=== PATIENT | female | born 1960 | race Caucasian/White ===

== ENCOUNTER 2017-04-13 10:45 | Inpatient (IN) | payer BC ==
[2017-05-01] MEDS ORDERED: TRANEXAMIC ACID 1,000 MG in NS (SYRINGE) 50 ML IV ONE (06:00)
[2017-05-01] MEDS ORDERED: morphINE PF 5 MG/10 ML INJ IT ONE (07:02)
[2017-05-01] MEDS ORDERED: fentaNYL 100 MCG/2 ML INJ IT ONE (07:02)
[2017-05-01] MEDS ORDERED: ceFAZolin 2 GM/SWFI 2 GM/20 ML SYR IVP ONE ×2 (07:02→07:30)
[2017-05-01] MEDS ORDERED: LR 1,000 ML IV ONE (07:06)
[2017-05-01] MEDS ORDERED: LIDOCAINE 1% 2 ML INJ ID PRN (07:06)
--- NOTE | 2017-05-01 07:18 | PDGENHP ---
History & Physical Chief Complaint: neck pain History of Present Illness: previous neck surgeries with non-union, multilevel DJD/stenosis. Patient has neck pain and right arm paresthesias Pertinent Past, Social, Family History: hypothryoidism Relevant Physical Exam: AAOx4, +FC. PERRL, EOMI. 5/5. + light touch
[2017-05-01] MEDS ORDERED: THROMBIN (BOVINE) 20,000 UNIT VIAL TP ONE ×2 (08:20→13:18)
[2017-05-01] MEDS ORDERED: CHLORHEXIDINE GLUC HIBICLENS 118 ML BTL TP ONE (08:20)
[2017-05-01] MEDS ORDERED: BUPIVACAINE 0.25% 30 ML SDV ONE (08:20)
[2017-05-01] MEDS ORDERED: BACITRACIN 50,000 UNITS/10 ML SYR IRR ONE (08:21)
[2017-05-01] MEDS ORDERED: LIDOCAINE 2% 5 ML SDV ONE (09:25)
[2017-05-01] MEDS ORDERED: DEXAMETHASONE 4 MG/ML VIAL ONE (09:25)
[2017-05-01] MEDS ORDERED: ONDANSETRON 4 MG/2 ML VIAL ONE (09:25)
[2017-05-01] MEDS ORDERED: ROCURONIUM 50 MG/5 ML VIAL ONE (09:25)
[2017-05-01] MEDS ORDERED: REMIFENTANIL HCL 1 MG VIAL ONE ×3 (09:29→14:03)
[2017-05-01] MEDS ORDERED: fentaNYL 100 MCG/2 ML INJ ONE ×4 (09:29→17:23)
[2017-05-01] MEDS ORDERED: PROPOFOL/EMULSION 500 MG/50 ML BOTTLE IV ONE ×2 (09:30→12:42)
[2017-05-01] MEDS ORDERED: PROPOFOL 200 MG/20 ML VIAL ONE (09:30)
[2017-05-01] MEDS ORDERED: MIDAZOLAM 2 MG/2 ML VIAL IVP ONE (09:33)
--- NOTE | 2017-05-01 09:47 | PDANEPAE ---
ANE History of Present Illness h/o ACDF with persistent cervicalgia and radiculopathy. p/f hardware removal, ACDF, and posterior cervical fusion. ANE Past Medical History - Cardiovascular History Hx Hypertension: No Hx Arrhythmias: No Hx Chest Pain: No Hx Coronary Artery / Peripheral Vascular Disease: No Hx CHF / Valvular Disease: No Hx Palpitations: No - Pulmonary History Hx COPD: No Hx Asthma/Reactive Airway Disease: No Hx Recent Upper Respiratory Infection: No Hx Oxygen in Use at Home: No Hx Sleep Apnea: No Sleep Apnea Screening Result - Last Documented: Negative - Neurologic History Hx Cerebrovascular Accident: No Hx Seizures: No Hx Dementia: No Neurologic History Comment: 2016 TIA - Endocrine History Hx Diabetes: No Hypothyroid: Yes Hyperthyroid: No Obesity: no - Renal History Hx Renal Disorders: No - Liver History Hx Hepatic Disorders: No - Neurological & Psychiatric Hx Hx Neurological and Psychiatric Disorders: Yes Neurological / Psychiatric History Comment: ANXIETY,DEPRESSION - Cancer History Hx Cancer: Yes Cancer History Comment: BREAST CA - Congenital Disorder History Hx Congenital Disorders: No - GI History GERD: no Hx Gastrointestinal Disorders: No - Other Health History Other Health History: RASH ON FACE - Chronic Pain History Chronic Pain: Yes (LOWER BACK) - Surgical History Prior Surgeries: 2016 lumpectomy ANE Review of Systems Review of systems is: negative Review of Systems: - Exercise capacity METS (RN): 4 METS ANE Patient History - Allergies Allergies/Adverse Reactions: Sulfa (Sulfonamide Antibiotics) Allergy (Verified 03/29/17 11:09) Swelling/neck,face,throat - Home Medications Home medications: home medication list seen and reviewed Home Medications: Aspirin [Aspirin 81mg (*)] 81 mg PO DAILY 03/29/17 [Last Taken 04/06/17] Atorvastatin Calcium [Lipitor 40 mg (*)] 40 mg PO DAILY 03/29/17 [Last Taken ] Citalopram Hydrobromide [Citalopram HBr] 40 mg PO DAILY 03/29/17 [Last Taken 08:00] Cyanocobalamin [Vitamin B12 (*)] 1,000 mcg PO DAILY 03/29/17 [Last Taken ] Cyclobenzaprine [Flexeril 10 MG (*)] 10 mg PO TID PRN 03/29/17 [Last Taken 04/06] Donepezil HCl [Aricept 5 MG (*)] 10 mg PO DAILY 03/29/17 [Last Taken 04/30/17 08 :00] Gabapentin [Neurontin 300 MG (*)] 900 mg PO HS 03/29/17 [Last Taken 04/30/17 21: 45] HYDROmorphone HCL [Dilaudid 2 mg (*)] 2 - 4 mg PO BID PRN 03/29/17 [Last Taken 04/30/17 16:00] Levothyroxine [Synthroid 75 mcg (*)] 75 mcg PO DAILY06 03/29/17 [Last Taken 08:00] buPROPion XL [Wellbutrin Xl] 300 mg PO DAILY 03/29/17 [Last Taken 04/30/17 08:00 ] celeCOXIB [Celebrex (*)] 200 mg PO QID PRN 03/29/17 [Last Taken 04/06/17] - NPO status NPO Since - Liquids (Date): 04/30/17 NPO Since - Liquids (Time): 21:45 NPO Since - Solids (Date): 04/30/17 NPO Since - Solids (Time): 19:30 - Anes Hx Anes Hx: no prior problems - Smoking Hx Smoking Status: Former smoker - Family Anes Hx Family Hx Anesthesia Complications: none ANE Labs/Vital Signs - Vital Signs Blood Pressure: 121/52 Heart Rate: 60 Respiratory Rate: 16 O2 Sat (%): 94 Height: 167.64 cm Weight: 63.503 kg ANE Physical Exam - Airway Neck exam: decreased ROM, spinal fusion Mouth exam: normal dental/mouth exam - Pulmonary Pulmonary: no respiratory distress - Cardiovascular Cardiovascular: regular rate and rhythym - ASA Status ASA Status: II ANE Anesthesia Plan Anesthesia Plan: general endotracheal anesthesia Lines/Monitors: arterial line, additional IV Specialized Airway: video laryngoscope
[2017-05-01] MEDS ORDERED: SUCCINYLCHOLINE CHLORIDE 200 MG/10 ML SYR IVP ONE (10:06)
[2017-05-01] MEDS ORDERED: CITRATE DEXTROSE SOLN 500 ML BAG ONE ×2 (10:30→12:58)
[2017-05-01] MEDS ORDERED: HYDROmorphONE/DILAUDID 2 MG/ML INJ ONE ×2 (10:51→16:11)
[2017-05-01] MEDS ORDERED: THROMBIN (BOVINE) 5,000 UNIT VIAL TP ONE (12:18)
[2017-05-01] MEDS ORDERED: ceFAZolin 1 GM VIAL ONE (13:33)
[2017-05-01] MEDS ORDERED: diphenhydrAMINE 25 MG CAP PO PRN (15:42)
[2017-05-01] MEDS ORDERED: LACTULOSE 20 GM/30 ML UDCUP PO PRN (15:42)
[2017-05-01] MEDS ORDERED: NALOXONE HCL 0.4 MG/ML INJ IVP PRN ×2 (15:42→15:56)
[2017-05-01] MEDS ORDERED: MAGNESIUM HYDROXIDE 30 ML UDCUP PO PRN (15:42)
[2017-05-01] MEDS ORDERED: HYDROmorphONE/DILAUDID 2 MG/ML INJ IVP PRN (15:42)
[2017-05-01] MEDS ORDERED: BISACODYL 10 MG SUPP PR PRN (15:42)
[2017-05-01] MEDS ORDERED: NS W/ 20 KCl/L 1,000 ML IV SCH (15:45)
[2017-05-01] MEDS ORDERED: HYDROmorphONE/DILAUDID 2 MG TAB PO PRN (15:50)
--- NOTE | 2017-05-01 15:53 | SOAPPROG ---
SOAP Progress Note Assessment/Plan: Assessment: 56 yo F sp C3/4, 4/5, C6/7, C7/T1 ACDF and C3-t posterior cervical fusion Plan: stable to step down for overnight obs hard collar to be fit by [facility] PT/OT please call with neuro changes 05/01/17 15:52 Subjective: + neck pain, no arm pain Objective: Vital Signs Temp Pulse Resp BP Pulse Ox 37.2 C 60 16 121/52 H 94 05/01/17 09:51 05/01/17 09:51 05/01/17 09:51 05/01/17 09:51 05/01/17 09:51 awake PERRL, no facial droop RITCHIE x 4 + light touch ICD10 Worksheet Patient Problems: Problems Problem Status Onset Fusion of spine of cervical region Acute - ICD10 Problem Qualifiers (1) Fusion of spine of cervical region
[2017-05-01] MEDS ORDERED: PROMETHAZINE HCL 25 MG/ML INJ IVP PRN (15:56)
[2017-05-01] MEDS ORDERED: OXYCODONE/APAP 5/325 TAB PO PRN (15:56)
[2017-05-01] MEDS ORDERED: ACETAMINOPHEN 500 MG TAB PO PRN (15:56)
[2017-05-01] MEDS ORDERED: LR 500 ML IV PRN (15:56)
[2017-05-01] MEDS ORDERED: HYDROCODONE/APAP 5/325 TAB PO PRN (15:56)
[2017-05-01] MEDS ORDERED: LABETALOL HCL 5 MG/ML 20 ML MDV IVP PRN (15:56)
[2017-05-01] MEDS ORDERED: ALBUTEROL 3 ML DEYVIAL IH PRN (15:56)
[2017-05-01] MEDS ORDERED: ONDANSETRON 4 MG/2 ML VIAL IVP PRN (15:56)
--- NOTE | 2017-05-01 15:57 | POSTANESTH ---
Post Anesthetic Evaluation Cardiovascular Status: Normal, Stable Respiratory Status: Normal, Stable Level of Consciousness/Mental Status: Can Participate in Eval Pain Control: Adequate, Prn Tx Ordered Nausea/Vomiting Control: Adequate, Prn Tx Ordered Complications Possibly Related to Anesthesia: None Noted
[2017-05-01] MEDS: fentaNYL 100 MCG/2 ML INJ IVP PRN ×4 (16:13→17:42)
[2017-05-01] MEDS ORDERED: DIAZEPAM 5 MG/ML 1 ML SYR ONE (16:21)
[2017-05-01] MEDS: DIAZEPAM 5 MG/ML 1 ML SYR IVP PRN ×2 (16:23→16:34)
[2017-05-01] MEDS: HYDROmorphONE/DILAUDID 2 MG/ML INJ IVP PRN ×2 (16:49→17:21)
[2017-05-01] MEDS: HYDROmorphONE/DILAUDID 6 MG/30 ML PCA IV PRN (18:23)
[2017-05-01] MEDS: DIAZEPAM 5 MG TAB PO PRN (18:23)
[2017-05-01] MEDS: METHOCARBAMOL 750 MG TAB PO PRN (19:09)
[2017-05-01] MEDS: POLYETHYLENE GLYCOL 3350 17 GM PKT PO SCH ×2 (19:53→23:27)
--- NOTE | 2017-05-01 20:13 | GOP ---
[f rep st] OPERATIVE REPORT DATE OF OPERATION: SURGEON: Daryn Kincaid MD NEUROSURGEON: Daryn Kincaid MD. DRAPERY MAKER: CAMRYN Hutton ANESTHESIA: General endotracheal. 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 PROCEDURE PERFORMED: C3 through T1 posterior segmental (pedicle screw and lateral mass screw) fixati on and posterolateral fusion with local autograft and bone morphogenic protein. Use of intraoperativ e microscopy and fluoroscopy. FINDINGS: ESTIMATED BLOOD LOSS: 50 cc. 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 The patient presents for removal of the C5 throug h C7 anterior cervical plate and revision of the fusion at C6-7 and new decompression and fusions at C3-4, C4-5, and C7-T1. DESCRIPTION OF PROCEDURE: After the anterior portion of the procedure was completed, the patient was repositioned prone on the Junior table with the head in a radiolucent Johnson inspector and adjuster golf club head. The po sterior cervical and upper thoracic regions were prepped and draped in sterile fashion. After fluoro scopic localization of the correct levels, the subcutaneous and intramuscular tissues were infiltrate d with local anesthesia. A midline linear incision was then created from approximately C3 through T1 and carried down to the fascial layer, which was then incised using monopolar electrocautery and car ried in a subperiosteal plane along the spinous processes and out the lamina bilaterally. Following re-verification of good position, the area was scraped clean of soft tissues and the joints drilled o ut at C3-4, C4-5, C5-6, C6-7, and C7-T1. After defining the anatomy very well, the fluoroscopy unit was removed and the O-arm neuronavigational system brought in. 3D reconstructed images were obtained and sent to the [facility] station. Using computer volumetric stereotactic navigation, pedicle screws were placed at T1 bilaterally and lateral mass screw fixation at C2 through C6 bilaterally. Each ind ividual screw was tested neurophysiologically with monopolar electrostimulation and interpretation of the potentials by the surgeon. Following verification of good position with the intraoperative neur ophysiologic testing and biplanar fluoroscopy, the rods were then contoured and placed and secured un rebeca maximal lordosis. Following this and decortication of the all the remaining lamina and facet radha nts from C3 through T1, the residual local autograft along with bone morphogenic protein and morseliz ed allograft was placed out laterally for a posterolateral fusion from C3 through T1. A drain was th en placed. The subcutaneous and intramuscular tissues were re-infiltrated with local anesthesia and the wound was closed in a layered fashion using interrupted Vicryl sutures followed by Steri-Strips o n the skin. COMPLICATIONS: None. /[id number]/MODL
--- NOTE | 2017-05-01 20:13 | GOP ---
[f rep st] OPERATIVE REPORT DATE OF OPERATION: 05/01/2017 SURGEON: Daryn Kincaid MD NEUROSURGEON: Daryn Kincaid MD. LENS GENERATOR: CAMRYN Hutton ANESTHESIA: General endotracheal. 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 PROCEDURE PERFORMED: Removal of C5 through C7 anterior cervical plate with redo C6-7 anterior cervic al diskectomy and arthrodesis with structural PEEK interbody spacers, local autograft and demineraliz ed bone matrix. New C3-4, C4-5 and C7-T1 anterior cervical diskectomy and arthrodesis with 3 structu ral PEEK interbody spacers, local autograft and demineralized bone matrix. Placement of a C3 through C5 anterior cervical plate with self-drilling screws and a C6 through T1 anterior cervical plate wit h self-drilling screws. Partial C7 vertebral corpectomy for decompression of canal and nerve roots a nd pseudoarthrosis. Use of intraoperative microscopy, fluoroscopy, and computer volumetric stereotac tic navigation with intraoperative neurophysiologic testing. FINDINGS: ESTIMATED BLOOD LOSS: 100 cc. 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 The patient presents for removal of the C5 throug h C7 anterior cervical plate and revision of the fusion at C6-7 and new decompression and fusions at C3-4, C4-5, and C7-T1. DESCRIPTION OF PROCEDURE: After informed consent was obtained, the patient was taken to the operatin g room and placed in the supine position with the head in the halter retractor system. The anterior cervical region was prepped and draped in a sterile fashion, and after fluoroscopic localization of t he correct levels, Dr. Yaquelin Serrato made the skin incision and performed the initial exposure down t o the C3 through T1 levels. After assisting Dr. Olivarez, I then carefully dissected the prior plate free of scar tissue and removed it in the standard fashion from C5 through C7. 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 This was extensiv sylvester curetted and drilled out down to the dura and any remaining endplates prepared and an appropriate ly sized structural PEEK interbody spacer packed with local autograft from the drilling along with de mineralized bone matrix was placed in the interspace under fluoroscopic imaging guidance. The C7-T1 anterior cervical diskectomy was then performed under high-power microscopy with [place] distraction p ins in place and the posterior longitudinal ligament removed and bilateral foraminotomies performed. The neural foramina were very tight and this required very careful dissection under high-power micro scopy. It also required a fairly extensive amount of drilling and in combination with drilling the C 7-T1 interspace and the C6-7 interspace from the nonunion, approximately 50% of the vertebral body at C7 was removed for a partial C7 vertebral corpectomy. After thoroughly decompressing the area and t he nerve roots and thecal sac and preparing any remaining endplates, an appropriately-sized structura l PEEK interbody spacer packed with local autograft in the center along with demineralized bone matri x was placed in the interspace under fluoroscopic image guidance. The anterior cervical plate was th en placed and secured from C6 through T1 with the maximal lordotic curvature that would safely allow it without pulling the screws out. After verifying good position of the plate, screws, and interbody spacers using biplanar fluoroscopy, the dissection was carried back up to the C3-4 and C4-5 levels w here the distraction pins were serially inserted and while under distraction, complete diskectomies w ere performed at C3-4 and C4-5 levels with removal of the posterior longitudinal ligament at each lev el and bilateral foraminotomies were performed. Meticulous hemostasis was achieved and the remaining endplates were carefully drilled off and prepared and appropriately sized structural PEEK interbody spacers were placed in the interspaces at C3-4 and C4-5. An anterior cervical plate was then placed and secured with self-drilling screws from C3 through C5 (L and K). Following engagement of the lock ing mechanisms, biplanar fluoroscopy was utilized to verify good position of the plate, screws, and i nterbody spacers. Following this, the wound was copiously irrigated with antibiotic irrigation. A d rain was placed and the wound was closed in a layered fashion using interrupted Vicryl sutures follow ed by Steri-Strips on the skin. Addendum: Please note that a maximal lordotic bend was placed on both of the anterior cervical plate s but the patient was already visually fused in place in certain areas and this could not be achieved without a much more extensive surgery which the patient clearly did not want. COMPLICATIONS: None. DISPOSITION: The patient was then repositioned for the posterior portion of the operation. /[id number]/MODL
[2017-05-01] MEDS ORDERED: ceFAZolin 2 GM/DEXTROSE 100 ML IV SCH (22:00)
[2017-05-01] MEDS: GABAPENTIN 300 MG CAP PO SCH (22:19)
[2017-05-01] MEDS: CYCLOBENZAPRINE 10 MG TAB PO PRN (22:19)
[2017-05-01] MEDS: FAMOTIDINE 20 MG TAB PO SCH (22:19)
[2017-05-01] MEDS: SENNOSIDES/DOCUSATE SODIUM TAB PO SCH (22:19)
[2017-05-01] MEDS: morphINE SR 15 MG TAB PO SCH (22:19)
[2017-05-01] MEDS: ceFAZolin 2 GM/SWFI 2 GM/20 ML SYR IVP SCH (22:20)
[2017-05-02] MEDS: DIAZEPAM 5 MG TAB PO PRN ×3 (01:42→21:49)
[2017-05-02] MEDS: METHOCARBAMOL 750 MG TAB PO PRN ×2 (03:34→16:40)
[2017-05-02 05:34] LABS: PLATELET COUNT 223 10^3/uL (150-400)
--- NOTE | 2017-05-02 07:15 | NEUSURGPN ---
Date of Surgery: 05/01/17 Post Op Day: 1 Assessment/Plan: Assessment: 56 yo F s/p C3/4, 4/5, C6/7, C7/T1 ACDF and C3-T posterior cervical fusion POD #1 Plan: -neuro stable -pt with continued mild nausea-will add scopolamine -pain control still an issue -collar readjusted and fitting well -post op xrays pending -STEPHANIE x [address] and working -continue with SDU for now -plan for possible transfer later today if does fine -continue with PT/OT -please call with neuro changes -pt understands and agrees Subjective: Awake and alert. NAD. Eating/drinking and voiding. No f/c/n/v/d. No gongroa/cp/ sob/abd or gu complaints. Objective: AAO x 3, PERRLA/EOMI no droop CN 2-12 grossly intact +lt touch 5/5 BUE/BLE = CDI neck is soft and supple Neuro Check Frequency: per routine Urinary Catheter in Place: No Catheter Insertion Date: 05/01/17 - Physician Discussed Patient with : Codi Neurosurgery Physical Exam - Vitals, I&O, Labs I and O 05/01/17 05/02/17 05/03/17 05:59 05:59 05:59 Intake Total 2400 Output Total 915 Balance 1485 Weight 63.503 kg Intake: Oral (ml) 0 IV Intake (ml) 2400 Output: Urine (ml) 550 Catheter 550 Estimated Blood Loss (ml) 300 STEPHANIE Drain Output (ml) 65 Anterior Neck Junior 20 Martinez Posterior Neck Junior 45 Martinez Vital Signs Temp Pulse Resp BP Pulse Ox 36.8 C 86 10 L 154/77 H 100 05/01/17 19:55 05/02/17 03:00 05/02/17 03:00 05/02/17 03:00 05/02/17 03:00 Laboratory Results 05/02/17 05:25 05/02/17 05:25 ICD10 Worksheet Patient Problems: Problems Problem Status Onset Fusion of spine of cervical region Acute
[2017-05-02] MEDS: ceFAZolin 2 GM/SWFI 2 GM/20 ML SYR IVP SCH (07:30)
[2017-05-02] MEDS: LEVOTHYROXINE 75 MCG TAB PO SCH (07:30)
[2017-05-02] MEDS: SCOPOLAMINE HYDROBROMIDE 1 MG/3 DAYS PATCH TD SCH (08:02)
[2017-05-02] MEDS: morphINE SR 15 MG TAB PO SCH ×2 (08:09→21:48)
[2017-05-02] MEDS: CYCLOBENZAPRINE 10 MG TAB PO PRN (08:10)
[2017-05-02] MEDS: CITALOPRAM 20 MG TAB PO SCH (08:10)
[2017-05-02] MEDS: DONEPEZIL HCL 5 MG TAB PO SCH (08:11)
[2017-05-02] MEDS: ATORVASTATIN CALCIUM 40 MG TAB PO SCH (08:13)
[2017-05-02] MEDS: buPROPion XL 150 MG TAB PO SCH (08:13)
[2017-05-02] MEDS: FAMOTIDINE 20 MG TAB PO SCH ×2 (08:13→21:51)
--- NOTE | 2017-05-02 09:04 | PDMN ---
Medical Necessity Medical necessity: S330- cervical fusion , posterior 2 days: C3-T1 posteriolateral fusion....
--- NOTE | 2017-05-02 09:45 | ASMTCMCOM ---
CM Note CM Note Notes: 56yr old female admitted with neck pain. She has a Hx of Hypothyroid. This is POD #1 of C#-T1 fusion. Therapies to eval for discharge needs. Patient lives with her . CM to follow. Date Signed: 05/02/2017 09:45 AM Electronically Signed By:Bharati Caicedo LCSW
[2017-05-02] MEDS ORDERED: HYDROmorphone HCL/NS 0.5 MG/ML SYR IVP PRN (10:00)
[2017-05-02] MEDS: POLYETHYLENE GLYCOL 3350 17 GM PKT PO SCH ×3 (11:40→21:51)
[2017-05-02] MEDS: SENNOSIDES/DOCUSATE SODIUM TAB PO SCH ×2 (11:42→21:51)
[2017-05-02] MEDS: ONDANSETRON 4 MG/2 ML VIAL IVP PRN (18:25)
[2017-05-02] MEDS ORDERED: DEXMEDETOMIDINE HCL 400 MCG in NS 100 ML IV SCH (18:30)
[2017-05-02] MEDS: GABAPENTIN 300 MG CAP PO SCH (21:51)
[2017-05-02] MEDS: HYDROmorphONE/DILAUDID 6 MG/30 ML PCA IV PRN (22:53)
[2017-05-03] MEDS: METHOCARBAMOL 750 MG TAB PO PRN ×2 (01:02→18:43)
[2017-05-03] MEDS: DIAZEPAM 5 MG TAB PO PRN (04:14)
[2017-05-03] MEDS: LEVOTHYROXINE 75 MCG TAB PO SCH (04:14)
--- NOTE | 2017-05-03 08:51 | SOAPPROG ---
SOAP Progress Note Assessment/Plan: Assessment: 56 yo F POD #2 sp C5-7 plate removal, C3/4, 4/5, redo C6/7, C7/T1 ACDF and C3-T1 posterior cervical fusion Plan: stable and doing well overall :) wean [employer] and precedex post op x-rays today hard collar for 4 weeks PT/OT scd/[place] for dvt prophylaxis, lovenox on POD #3 (05/04/17) keep both JPs for now transfer to floor please call with neuro changes patient seen by Dr Linder 05/01/17 15:52 05/03/17 08:47 05/03/17 08:52 Subjective: continued neck pain, no arm pain, no arm paresthesias. Swallowing ok Objective: Vital Signs Temp Pulse Resp BP Pulse Ox 37.2 C 76 12 136/67 H 99 05/03/17 04:00 05/03/17 08:00 05/03/17 08:00 05/03/17 08:00 05/03/17 08:00 Laboratory Results 05/02/17 05:25 05/02/17 05:25 05/02/17 05/03/17 05/04/17 05:59 05:59 05:59 Intake Total 3825 1985 Output Total 1950 1400 Balance 1875 585 AAOx4, +FC PERRL, EOMI, no facial droop 5/5 + Light touch C/D/I ICD10 Worksheet Patient Problems: Problems Problem Status Onset Fusion of spine of cervical region Acute - ICD10 Problem Qualifiers (1) Fusion of spine of cervical region
[2017-05-03] MEDS: DONEPEZIL HCL 5 MG TAB PO SCH (10:09)
[2017-05-03] MEDS: CITALOPRAM 20 MG TAB PO SCH (10:09)
[2017-05-03] MEDS: buPROPion XL 150 MG TAB PO SCH (10:09)
[2017-05-03] MEDS: POLYETHYLENE GLYCOL 3350 17 GM PKT PO SCH ×3 (10:10→20:19)
[2017-05-03] MEDS: SENNOSIDES/DOCUSATE SODIUM TAB PO SCH ×2 (10:10→20:19)
[2017-05-03] MEDS: morphINE SR 15 MG TAB PO SCH ×2 (10:10→20:19)
[2017-05-03] MEDS: FAMOTIDINE 20 MG TAB PO SCH ×2 (10:10→20:19)
[2017-05-03] MEDS: ATORVASTATIN CALCIUM 40 MG TAB PO SCH (10:10)
[2017-05-03] MEDS: ONDANSETRON 4 MG/2 ML VIAL IVP PRN (15:31)
[2017-05-03] MEDS: ACETAMINOPHEN 325 MG TAB PO PRN (15:49)
[2017-05-03] MEDS ORDERED: NS 1,000 ML IV SCH (17:00)
[2017-05-03] MEDS: ONDANSETRON DISINTEGRATING 4 MG TAB PO PRN ×2 (18:36→23:15)
[2017-05-03] MEDS: GABAPENTIN 300 MG CAP PO SCH (20:18)
[2017-05-03] MEDS: CYCLOBENZAPRINE 10 MG TAB PO PRN (20:19)
[2017-05-04] MEDS: ACETAMINOPHEN 325 MG TAB PO PRN ×3 (06:24→18:38)
[2017-05-04] MEDS: LEVOTHYROXINE 75 MCG TAB PO SCH (06:24)
[2017-05-04] MEDS: ONDANSETRON DISINTEGRATING 4 MG TAB PO PRN ×2 (07:59→14:58)
--- NOTE | 2017-05-04 08:08 | NEUSURGPN ---
Date of Surgery: 05/01/17 Post Op Day: 3 Assessment/Plan: Assessment: 56 yo F POD #3 sp C5-7 plate removal, C3/4, 4/5, redo C6/7, C7/T1 ACDF and C3-T1 posterior cervical fusion Plan: -stable and doing fine with some facial pain-D/W Dr Linder -plan for removal of bilat JPs-ok with Dr Linder -wean [employer] to PO meds -post op x-rays reviewed with Dr Linder-no complications -hard collar for 4 weeks-fitting well-no skin issues -PT/OT/ST-CPM -scd/[place] for dvt prophylaxis, lovenox on POD #3 (05/04/17) -transfer to floor -please call with neuro changes -patient seen by Dr Linder Subjective: Awake and alert. NAD. Pt with some facial pain and GÓMEZ's. D/W Dr Linder. No cp/sob /abd or gu complaints. Objective: AAOx4, +FC CN 2-12 grossly intact PERRLA, EOMI, no facial droop 5/5 BUE/BLE = + Light touch C/D/I Neuro Check Frequency: per routine Urinary Catheter in Place: No Catheter Insertion Date: 05/01/17 - Physician Discussed Patient with : Codi Patient Seen by : Codi Neurosurgery Physical Exam - Vitals, I&O, Labs I and O 05/03/17 05/04/17 05/05/17 05:59 05:59 05:59 Intake Total 1985 2297 Output Total 1400 1105 Balance 585 1192 Intake: Oral (ml) 900 650 IV Intake (ml) 478 IV Infused (ml) 1085 1169 Dexmedetomidine HCl 400 37 4 mcg In Ns 100 ml @ Per Protocol IV CONT OLIVIA Rx#: [id number] NS W/ 20 KCl/L 1,000 ml @ 1048 75 mls/hr IV CONT OLIVIA Rx #:[id number] Ns 1,000 ml @ 100 mls/hr 1165 IV CONT OLIVIA Rx#: [id number] Output: Urine (ml) 1400 1000 Bedside Commode 300 1000 Catheter 1100 STEPHANIE Drain Output (ml) 105 Anterior Neck Junior 15 Martinez Posterior Neck Junior 90 Martinez Other: Number of Voids Bedside Commode 2 Vital Signs Temp Pulse Resp BP Pulse Ox 36.9 C 81 12 121/69 H 100 03/22/18 04:00 05/04/17 04:00 05/04/17 04:00 05/04/17 04:00 05/04/17 04:00 Laboratory Results 05/02/17 05:25 05/02/17 05:25 ICD10 Worksheet Patient Problems: Problems Problem Status Onset Fusion of spine of cervical region Acute
[2017-05-04] MEDS: ENOXAPARIN 40 MG/0.4 ML SYR SC SCH (09:27)
[2017-05-04] MEDS: POLYETHYLENE GLYCOL 3350 17 GM PKT PO SCH ×3 (09:28→20:51)
[2017-05-04] MEDS: buPROPion XL 150 MG TAB PO SCH (09:28)
[2017-05-04] MEDS: DONEPEZIL HCL 5 MG TAB PO SCH (09:28)
[2017-05-04] MEDS: ATORVASTATIN CALCIUM 40 MG TAB PO SCH (09:28)
[2017-05-04] MEDS: FAMOTIDINE 20 MG TAB PO SCH ×2 (09:29→19:28)
[2017-05-04] MEDS: CITALOPRAM 20 MG TAB PO SCH (09:29)
[2017-05-04] MEDS: SENNOSIDES/DOCUSATE SODIUM TAB PO SCH ×2 (09:29→19:28)
[2017-05-04] MEDS: morphINE SR 15 MG TAB PO SCH ×2 (09:30→19:27)
--- NOTE | 2017-05-04 09:43 | ASMTCMCOM ---
CM Note CM Note Notes: Chart reviewed. Patient medically cleared for transfer to medical floor. S/P C spine surgery, Lives with in [facility]. May benefit form [facility]. CM to follow for possible discharge needs. Date Signed: 05/04/2017 09:42 AM Electronically Signed By:Stacy France RN
[2017-05-04] MEDS: ONDANSETRON 4 MG/2 ML VIAL IVP PRN (11:34)
[2017-05-04] MEDS: METHOCARBAMOL 750 MG TAB PO PRN (12:42)
[2017-05-04] MEDS: HYDROmorphONE/DILAUDID 2 MG TAB PO PRN ×2 (14:59→19:26)
[2017-05-04] MEDS ORDERED: PROMETHAZINE HCL 25 MG TAB PO PRN (16:40)
[2017-05-04] MEDS: METOCLOPRAMIDE 5 MG TAB PO PRN (18:48)
[2017-05-04] MEDS: GABAPENTIN 300 MG CAP PO SCH (19:27)
[2017-05-05] MEDS: HYDROmorphONE/DILAUDID 2 MG TAB PO PRN ×4 (03:30→20:05)
[2017-05-05] MEDS: ACETAMINOPHEN 325 MG TAB PO PRN (05:51)
[2017-05-05] MEDS: LEVOTHYROXINE 75 MCG TAB PO SCH (05:51)
[2017-05-05] MEDS: METHOCARBAMOL 750 MG TAB PO PRN (05:51)
--- NOTE | 2017-05-05 08:35 | SOAPPROG ---
SOAP Progress Note Assessment/Plan: Assessment: 56 yo F POD #4 sp C5-7 plate removal, C3/4, 4/5, redo C6/7, C7/T1 ACDF and C3-T1 posterior cervical fusion Plan: -stable and doing fine facial pain resolved -post op x-rays reviewed with Dr Linder-no complications -hard collar for 4 weeks-fitting well-no skin issues -PT/OT/ST-CPM -scd/[place] for dvt prophylaxis, lovenox on POD #3 (05/04/17) -please call with neuro changes Subjective: sitting up in bed, drinking coffee through a straw. Feeling good. Reports "ache " in her posterior neck. States her bilateral arm/hand paresthesias and strength is improved. Objective: Vital Signs Temp Pulse Resp BP Pulse Ox 37.1 C 81 14 115/60 91 L 05/05/17 07:13 05/05/17 07:13 05/05/17 07:13 05/05/17 07:13 05/05/17 07:13 Laboratory Results 05/02/17 05:25 05/02/17 05:25 05/04/17 05/05/17 05/06/17 05:59 05:59 05:59 Intake Total 2297 1150 Output Total 1105 300 Balance 1192 850 NEuro: WONG, sens +LT follows commands. speech clear Ant incision: CDI Post incision: CDI no JPs ICD10 Worksheet Patient Problems: Problems Problem Status Onset Fusion of spine of cervical region Acute
[2017-05-05] MEDS: CITALOPRAM 20 MG TAB PO SCH (09:29)
[2017-05-05] MEDS: ATORVASTATIN CALCIUM 40 MG TAB PO SCH (09:29)
[2017-05-05] MEDS: DONEPEZIL HCL 5 MG TAB PO SCH (09:30)
[2017-05-05] MEDS: FAMOTIDINE 20 MG TAB PO SCH ×2 (09:30→20:04)
[2017-05-05] MEDS: buPROPion XL 150 MG TAB PO SCH (09:30)
[2017-05-05] MEDS: SCOPOLAMINE HYDROBROMIDE 1 MG/3 DAYS PATCH TD SCH (09:30)
[2017-05-05] MEDS: morphINE SR 15 MG TAB PO SCH ×2 (09:30→20:04)
[2017-05-05] MEDS: ENOXAPARIN 40 MG/0.4 ML SYR SC SCH (09:31)
[2017-05-05] MEDS: POLYETHYLENE GLYCOL 3350 17 GM PKT PO SCH ×3 (09:31→20:06)
[2017-05-05] MEDS: SENNOSIDES/DOCUSATE SODIUM TAB PO SCH ×2 (09:31→20:06)
[2017-05-05] MEDS: PATCH REMOVAL 1 EA PATCH TD SCH (09:31)
[2017-05-05] MEDS: METOCLOPRAMIDE 5 MG TAB PO PRN (10:48)
--- NOTE | 2017-05-05 15:15 | ASMTCMCOM ---
CM Note CM Note Notes: CM met w/ pt for dispo planning. Therapies are recommending HC at this time. Pt believes that it would be beneficial. Referrals made to HC agencies in [place], [place]. Pt does not have a preference on HC agency as long as it is covered by her insurance. [facility] is able to accept. CM inputted [facility] contact info into pts chart. CM to follow. Plan: [facility] Home [facility], PT, OT Date Signed: 05/05/2017 03:15 PM Electronically Signed By:MEG Mccray
[2017-05-05] MEDS: GABAPENTIN 300 MG CAP PO SCH (20:04)
[2017-05-05] MEDS: DIAZEPAM 5 MG TAB PO PRN (20:08)
[2017-05-06] MEDS: LEVOTHYROXINE 75 MCG TAB PO SCH (05:01)
[2017-05-06] MEDS: HYDROmorphONE/DILAUDID 2 MG TAB PO PRN ×2 (05:01→20:53)
[2017-05-06] MEDS: ACETAMINOPHEN 325 MG TAB PO PRN (05:01)
[2017-05-06] MEDS: METHOCARBAMOL 750 MG TAB PO PRN ×2 (05:01→18:33)
[2017-05-06] MEDS: morphINE SR 15 MG TAB PO SCH ×2 (08:32→20:53)
[2017-05-06] MEDS: ATORVASTATIN CALCIUM 40 MG TAB PO SCH (10:02)
[2017-05-06] MEDS: CITALOPRAM 20 MG TAB PO SCH (10:03)
[2017-05-06] MEDS: FAMOTIDINE 20 MG TAB PO SCH ×2 (10:03→20:53)
[2017-05-06] MEDS: DONEPEZIL HCL 5 MG TAB PO SCH (10:03)
[2017-05-06] MEDS: buPROPion XL 150 MG TAB PO SCH (10:04)
[2017-05-06] MEDS: ENOXAPARIN 40 MG/0.4 ML SYR SC SCH (10:04)
[2017-05-06] MEDS: SENNOSIDES/DOCUSATE SODIUM TAB PO SCH ×2 (10:08→20:54)
[2017-05-06] MEDS: POLYETHYLENE GLYCOL 3350 17 GM PKT PO SCH ×3 (10:08→20:54)
[2017-05-06] MEDS: GABAPENTIN 300 MG CAP PO SCH ×3 (10:10→20:53)
--- NOTE | 2017-05-06 11:00 | NEUSURGPN ---
Assessment/Plan: Assessment/Plan: Assessment: 56 yo F POD #4 sp C5-7 plate removal, C3/4, 4/5, redo C6/7, C7/T1 ACDF and C3-T1 posterior cervical fusion Plan: -stable and doing fine this am with some arm pain -STEPHANIE Drains removed -On PO meds- having some muscle spasms as expected in posterior scapular regiion -post op x-rays reviewed with Dr Linder-no complications -hard collar for 4 weeks-fitting well-no skin issues -PT/OT/ST-CPM -scd/[place] for dvt prophylaxis, lovenox -Dispo- Patient to have one more day to manage pain/work with PT but will plan to DC home tomorrow back to [place] and will have more help there tomorrow -please call with neuro changes -patient discussed with Dr. Linder Subjective: Patient is doing well. She had more activity yesterday and now has more increase in her posterior neck pain and muscle spasms. Also has some arm pain this morning. Happy with her progress yesterday with PT. Objective: AAOx4, +FC CN 2-12 grossly intact PERRLA, EOMI, no facial droop 5/5 BUE/BLE = + Light touch C/D/I Catheter Insertion Date: 05/01/17 - Physician Discussed Patient with : Codi Neurosurgery Physical Exam - Vitals, I&O, Labs I and O 05/05/17 05/06/17 05/07/17 05:59 05:59 05:59 Intake Total 1150 1250 Output Total 300 Balance 850 1250 Intake: Oral (ml) 1150 1250 Output: Urine (ml) 300 Bedside Commode 300 Other: Intake Quantity Yes Yes Sufficient Number of Voids Bedside Commode 1 Toilet 1 1 Vital Signs Temp Pulse Resp BP Pulse Ox 36.9 C 79 16 140/57 H 96 05/06/17 07:52 05/06/17 07:52 05/06/17 07:52 05/06/17 07:52 05/06/17 07:52 Laboratory Results 05/02/17 05:25 05/02/17 05:25 ICD10 Worksheet Patient Problems: Problems Problem Status Onset Fusion of spine of cervical region Acute
[2017-05-06] MEDS: METOCLOPRAMIDE 5 MG TAB PO PRN (15:58)
[2017-05-06] MEDS: DIAZEPAM 5 MG TAB PO PRN (23:48)
[2017-05-07] MEDS: HYDROmorphONE/DILAUDID 2 MG TAB PO PRN ×2 (05:44→12:06)
[2017-05-07] MEDS: LEVOTHYROXINE 75 MCG TAB PO SCH (05:44)
[2017-05-07] MEDS: METHOCARBAMOL 750 MG TAB PO PRN (05:44)
[2017-05-07 08:18] VITALS: BP 116/73; PULSE 96; RESP 15; TEMP 98.3; O2SAT 94
[2017-05-07] MEDS: ATORVASTATIN CALCIUM 40 MG TAB PO SCH (08:26)
[2017-05-07] MEDS: FAMOTIDINE 20 MG TAB PO SCH (08:26)
[2017-05-07] MEDS: CITALOPRAM 20 MG TAB PO SCH (08:27)
[2017-05-07] MEDS: GABAPENTIN 300 MG CAP PO SCH (08:27)
[2017-05-07] MEDS: DONEPEZIL HCL 5 MG TAB PO SCH (08:27)
[2017-05-07] MEDS: morphINE SR 15 MG TAB PO SCH (08:27)
[2017-05-07] MEDS: buPROPion XL 150 MG TAB PO SCH (08:27)
[2017-05-07] MEDS: ENOXAPARIN 40 MG/0.4 ML SYR SC SCH (08:28)
[2017-05-07] MEDS: SENNOSIDES/DOCUSATE SODIUM TAB PO SCH (09:48)
[2017-05-07] MEDS: POLYETHYLENE GLYCOL 3350 17 GM PKT PO SCH (09:48)
--- NOTE | 2017-05-07 10:02 | NEUSURGPN ---
Assessment/Plan: Assessment/Plan: Assessment: 56 yo F POD #5 sp C5-7 plate removal, C3/4, 4/5, redo C6/7, C7/T1 ACDF and C3-T1 posterior cervical fusion Plan: -stable and doing well this am. Eager to gohome -STEPHANIE Drains removed -On PO meds- having some muscle spasms as expected in posterior scapular regiion -post op x-rays reviewed with Dr Linder-no complications -hard collar for 4 weeks-fitting well-no skin issues -PT/OT/ST-CPM -scd/kenya for dvt prophylaxis, lovenox -Dispo- Patient to go home today. -please call with neuro changes -patient discussed with Dr. Linder Subjective: Patient is doing well. She has expected painin her shoulders but is being managed well. Happy with her progress yesterday with PT. Eager to go home. Objective: AAOx4, +FC CN 2-12 grossly intact PERRLA, EOMI, no facial droop 5/5 BUE/BLE = + Light touch Incisions anterior and posterior C/D/I Catheter Insertion Date: 05/01/17 - Physician Discussed Patient with : [facility] Physical Exam - Vitals, I&O, Labs I and O 05/06/17 05/07/17 05/08/17 05:59 05:59 05:59 Intake Total 1250 1500 Balance 1250 1500 Intake: Oral (ml) 1250 1500 Other: Intake Quantity Yes Yes Sufficient Number of Voids Toilet 1 2 Vital Signs Temp Pulse Resp BP Pulse Ox 36.8 C 96 15 116/73 94 05/07/17 08:00 05/07/17 08:00 05/07/17 08:00 05/07/17 08:00 05/07/17 08:00 Laboratory Results 05/02/17 05:25 05/02/17 05:25 ICD10 Worksheet Patient Problems: Problems Problem Status Onset Fusion of spine of cervical region Acute
--- NOTE | 2017-05-07 10:10 | PDIAF ---
- Diagnosis Code Status: Full Code - Medication Management Discharge Medications: Medications to Continue on Transfer Atorvastatin Calcium [Lipitor 40 mg (*)] 40 mg PO DAILY 03/29/17 [Last Taken ] Citalopram Hydrobromide [Citalopram HBr] 40 mg PO DAILY 03/29/17 [Last Taken 08:00] Cyanocobalamin [Vitamin B12 (*)] 1,000 mcg PO DAILY 03/29/17 [Last Taken ] Donepezil HCl [Aricept 5 MG (*)] 10 mg PO DAILY 03/29/17 [Last Taken 04/30/17 08 :00] Gabapentin [Neurontin 300 MG (*)] 900 mg PO HS 03/29/17 [Last Taken 04/30/17 21: 45] Levothyroxine [Synthroid 75 mcg (*)] 75 mcg PO DAILY06 03/29/17 [Last Taken 08:00] buPROPion XL [Wellbutrin 150mg XL] 300 mg PO DAILY 03/29/17 [Last Taken 08:00] Acetaminophen [Tylenol 325mg (*)] 650 mg PO Q6H PRN tab 05/07/17 [Last Taken Unknown] Diazepam [Valium 5 MG (*)] 5 mg PO Q6HRS PRN #60 tab 05/07/17 [Last Taken Unknown] HYDROmorphone HCL [Dilaudid 2 mg (*)] 2 - 4 mg PO BID PRN #90 tab 05/07/17 [ Last Taken Unknown] Polyethylene Glycol 3350 [Miralax 17 gm (*)] 17 gm PO TID pkt 05/07/17 [Last Taken Unknown] Sennosides/Docusate Sodium [Senokot-S] 1 - 2 tab PO BID #60 tab 05/07/17 [Last Taken Unknown] morphINE SR [Ms Contin/Oramorph 15 mg (*)] 15 mg PO BID #20 tab 05/07/17 [Last Taken Unknown] Discharge Medications: Refer to the Discharge Home Medication list for PRN reason. - Orders Services needed: Home Intermediate Care Face to Face: I certify that this patient was under my care and that I had the required [id number] encounter meeting the encounter requirements on the discharge day. My findings support the fact that the patient is homebound as defined in Home Care Face to Face Continued: CMS Chapter 7 Medicare Benefits Manual 30.1.1 , The condition of the patient is such that there exists a normal inability to leave home and consequently, leaving home would require a considerable and taxing effort. Diet Recommendation: no restrictions on diet Diet Texture: Regular Texture Diet, Thin Liquids, Meds Whole w/Liquids Wound Care Instructions: [facility] will follow up with you directly. P#: [phone]. Wear your collar at all times except for showering. May shower, keep short 5-7 minutes, no scrubbing incisions, pat dry with towel leave steri strips until they fall off, no large dressign needed unless you want it for comfort. No lifting more than 5-10 pounds. No extreme twisting of neck. Keep eating soft foods until you are more comfortable advancing to other foods. If you are unable to swallow, shortness of breath, trouble breathing call 911. If you have any other questions or concerns please call [facility] [phone]. Follow up with Dr. Linder in 2 weeks Activity/Weight Bearing Restrictions: [facility] will follow up with you directly. P#: [phone]. Wear your collar at all times except for showering. No lifting more than 5-10 pounds. No extreme twisting of neck. Keep eating soft foods until you are more comfortable advancing to other foods. If you are unable to swallow, shortness of breath, trouble breathing call 911. If you have any other questions or concerns please call [facility] [phone]. Follow up with Dr. Linder in 2 weeks - Follow Up Care Current Providers and Referrals: CHLOE SOTELO [Other] Daryn Kincaid MD [Medical Doctor] - follow up in 2 weeks
--- NOTE | 2017-05-07 11:05 | ASDISCHSUM ---
Discharge Information Plan Status:Home with Home Health Medically Cleared to Leave:05/07/2017 Discharge Date:05/07/2017 CM D/C Disposition:[facility] D/C Disposition:[id number] Projected Discharge Date:05/07/2017 11:00 AM Transportation at D/C:Family Discharge Delay Reason: Follow-Up Date:05/07/2017 11:00 AM Discharge Slot:1 - 8:01 am - 12:00 noon Final Diagnosis:Neck pain Placement Information Referral Type:*Home Health Care Services Referral ID:[id number] Provider Name:[facility] [place] Address 1:[address] Phone Number: Address 2: Fax Number: City:[place] Selection Factors: State[place] Patient Contact Information Contact Name:KELVIN Relationship:Daughter Address: Work Phone: City: [place] Phone: [facility] Code: Email: Financial Information Financial Class:HMO and PPO Plans Primary Plan Desc: OUT OF STATE PPO Primary Plan Number:[id number] Secondary Plan Desc: Secondary Plan Number: Assessment Information [facility] CM Progress Note CM Note PALLAVI Note Notes: 56yr old female admitted with neck pain. She has a Hx of Hypothyroid. This is POD #1 of C#-T1 fusion. Therapies to eval for discharge needs. Patient lives with her . CM to follow. Date Signed: 05/02/2017 09:45 AM Electronically Signed By:Bharati Caicedo LCSW [facility] PALLAVI Progress Note CM Note CM Note Notes: Chart reviewed. Patient medically cleared for transfer to medical floor. S/P C spine surgery, Lives with in [facility]. May benefit form C. CM to follow for possible discharge needs. Date Signed: 05/04/2017 09:42 AM Electronically Signed By:Stacy France RN [facility] CM Progress Note CM Note CM Note Notes: CM met w/ pt for dispo planning. Therapies are recommending HC at this time. Pt believes that it would be beneficial. Referrals made to HC agencies in [place], [place]. Pt does not have a preference on HC agency as long as it is covered by her insurance. [facility] is able to accept. CM inputted [facility] contact info into pts chart. CM to follow. Plan: Continue Home Health, PT, OT Date Signed: 05/05/2017 03:15 PM Electronically Signed By:MEG Mccray Case Management Discharge Plan Note Case Management Discharge Discharge Order Complete? Answers: Yes Patient to Obtain Answers: via Family Medications Transportation Arranged Answers: Family/Friends Transport will Pick (Date 05/07/2017 11:00 AM & Time) Faxed Final Orders Answers: Yes Notes: [facility] Family Notified Answers: Yes Notes: present Discharge Comments Notes: Patient has been discharged home. [facility] to follow. Date Signed: 05/07/2017 10:57 AM Electronically Signed By:Bharati Caicedo LCSW Intervention Information
[2017-05-07] MEDS: PATCH REMOVAL 1 EA PATCH TD SCH (12:01)
[2017-05-07] MEDS: CYCLOBENZAPRINE 10 MG TAB PO PRN (12:06)
== END 2017-05-07 12:56 | disposition home health service (06) | DRG 472 ==
LOC: F3N 05-01 06:22 → F2N 05-01 15:55 → F3N 05-04 13:24
PROVIDERS: ADMIT Neurological Surgery; ATTEND Neurological Surgery
PROC: 01N10ZZ Release Cervical Nerve, Open Approach (ICD-10-PCS; principal; 2017-05-01 09:00)
PROC: 0RG40A0 Fusion of Cervicothoracic Vertebral Joint with Interbody Fusion Device, Anterior Approach, Anterior Column, Open Approach (ICD-10-PCS; principal; 2017-05-01 09:00)
PROC: 3E0U0GB Introduction of Recombinant Bone Morphogenetic Protein into Joints, Open Approach (ICD-10-PCS; principal; 2017-05-01 09:00)
PROC: 0RB50ZZ Excision of Cervicothoracic Vertebral Disc, Open Approach (ICD-10-PCS; principal; 2017-05-01 09:00)
PROC: 0PP304Z Removal of Internal Fixation Device from Cervical Vertebra, Open Approach (ICD-10-PCS; principal; 2017-05-01 09:00)
PROC: 0RB30ZZ Excision of Cervical Vertebral Disc, Open Approach (ICD-10-PCS; principal; 2017-05-01 09:00)
PROC: 0PH304Z Insertion of Internal Fixation Device into Cervical Vertebra, Open Approach (ICD-10-PCS; principal; 2017-05-01 09:00)
PROC: 0RG20A0 Fusion of 2 or more Cervical Vertebral Joints with Interbody Fusion Device, Anterior Approach, Anterior Column, Open Approach (ICD-10-PCS; principal; 2017-05-01 09:00)
DX: M50.31 Other cervical disc degeneration, high cervical region (principal); M50.321 Other cervical disc degeneration at C4-C5 level; M50.322 Other cervical disc degeneration at C5-C6 level; M50.323 Other cervical disc degeneration at C6-C7 level; M50.33 Other cervical disc degeneration, cervicothoracic region; M96.0 Pseudarthrosis after fusion or arthrodesis; M53.2X2 Spinal instabilities, cervical region
CPT/HCPCS: 92526-GN; 92610-GN; 97116-GP; 97161-GP; 97165-GO; 97530-GP; 97535-GO; C1713; C1762; J0171; J0330; J0690; J1100; J1170; J1650; J2250; J2274; J2405; J2704; J3010; J3360; J7060